=== PATIENT | female | born 1950 | race Caucasian/White ===

== ENCOUNTER → 2021-03-26 | Day surgery (SDC) | payer MEDICARE, OTHER ==
[~2021-03-26] VITALS: Ht 177.8 cm; Wt 70.8 kg
[~2021-03-26] MED LIST: ASCORBIC ACID500 MG PO; BONE ESSENT166.75 MG PO; FLONASE ALLER15.8 ML; NORCO 5-325 TA1 EACH PO; ONDANSETRON ODT8 MG PO; VITAMIN D310 MC4 PO; ZINC30 M1 PO; ZYRTEC10 M3 PO
[2021-03-26 08:30] LABS: HCT 38.5 % (37.0-47.0); HGB 12.7 g/dl (12.5-16.0); MCH 28.3 pg (25.0-31.0); MCV 85.9 fL (78.0-100.0); MPV 11.4 fL (6.0-9.5); RBC 4.48 M/uL (4.20-5.40); RDW 12.6 % (11.5-14.0); WBC 4.9 K/uL (4.0-10.5)
[2021-03-26 08:47] LABS: ALBUMIN 3.8 g/dL (3.4-5.0); BILIRUBIN - TOTAL 0.6 mg/dL (0.2-1.0); BUN/CREAT RATIO (CALC) 11.8 RATIO; CREATININE 0.85 mg/dL (0.51-0.95); GLOBULIN (CALCULATION) 3.5 g/dL; POTASSIUM 3.7 mmol/L (3.5-5.1); TOTAL PROTEIN 7.3 g/dL (6.4-8.2)
== END | disposition home or self-care (01) ==
LOC: FAS 07:36
PROVIDERS: Surgery
DX: K81.1 Chronic cholecystitis (principal); K82.8 Other specified diseases of gallbladder; Z79.899 Other long term (current) drug therapy
CPT/HCPCS: 36415; 80053; C1758; J1885; J2001; J2250; J2405; J2704; J2710; J3010; J7120; Q9967

== ENCOUNTER → 2021-12-03 | Day surgery (SDC) | payer MEDICARE, OTHER ==
[~2021-12-03] VITALS: Ht 177.8 cm; Wt 73.0 kg
[~2021-12-03] MED LIST changes: +[UNRECOGNIZED DRUG - OTHER] PO
[2021-12-03 07:53] LABS: HCT 36.2 % (37.0-47.0); MCH 28.9 pg (25.0-31.0); MCHC 33.1 g/dL (32.0-36.0); MCV 87.2 fL (78.0-100.0); MPV 10.7 fL (6.0-9.5); RBC 4.15 M/uL (4.20-5.40); RDW 12.2 % (11.5-14.0); WBC 4.6 K/uL (4.0-10.5)
[2021-12-03 08:35] LABS: ALBUMIN 3.8 g/dL (3.4-5.0); BILIRUBIN - TOTAL 0.7 mg/dL (0.2-1.0); BUN/CREAT RATIO (CALC) 23.2 RATIO; CREATININE 0.82 mg/dL (0.51-0.95); GLOBULIN (CALCULATION) 3.2 g/dL
== END | disposition home or self-care (01) ==
LOC: FAS 07:17
PROVIDERS: Orthopaedic Surgery
DX: M75.101 Unspecified rotator cuff tear or rupture of right shoulder, not specified as traumatic (principal); M19.011 Primary osteoarthritis, right shoulder; M75.51 Bursitis of right shoulder; M25.811 Other specified joint disorders, right shoulder; S43.431A Superior glenoid labrum lesion of right shoulder, initial encounter; M77.9 Enthesopathy, unspecified; Z79.899 Other long term (current) drug therapy
CPT/HCPCS: 36415; 71045; 80053; 93005; J0171; J0690; J0735; J1100; J1885; J2250; J2405; J2704; J2795; J7120